=== PATIENT | female | born 1955 | race Caucasian/White ===

== ENCOUNTER 2021-06-22 08:25 | Emergency (ER) | payer OTHER ==
[~2021-06-22] VITALS: Ht 175.3 cm; Wt 104.3 kg
[2021-06-22 10:28] LABS: Basophils # (auto) 0.1 10 ^3/uL (0-0.2); Basophils % (auto) 0.6 % (0.0-2.0); Eosinophils # (auto) 0.3 10 ^3/uL (0-0.8); Eosinophils % (auto) 2.4 % (0.0-7.0); Hematocrit 35.5 % (36.0-46.0); Hemoglobin 11.7 g/dL (12.2-16.2); Lymphocytes # (auto) 1.1 10 ^3/uL (0.4-5.4); Lymphocytes % (auto) 9.8 % (10.0-50.0); Mean Corpuscular Hemoglobin 31.9 pg (28.0-32.0); Mean Corpuscular Hgb Conc. 32.8 g/dL (32.0-36.0); Mean Corpuscular Volume 97.2 fL (80.0-100.0); Monocytes % (auto) 8.9 % (0.0-12.0); Neutrophils # (auto) 8.8 10 ^3/uL (1.6-8.6); Neutrophils % (auto) 78.3 % (37.0-80.0); Nucleated Red Blood Cells % 0.2 %; Red Blood Cells 3.65 10^6/uL (4.0-5.20); Red Cell Distribution Width 13.8 % (11.8-14.3); White Blood Cell 11.3 10^3/uL (4.4-10.8)
[2021-06-22 10:45] LABS: Albumin 2.8 g/dL (3.4-5.0); Calcium 8.2 mg/dL (8.5-10.1); Potassium 4.4 mmol/L (3.5-5.1)
[2021-06-22 10:50] LABS: BUN/Creatinine Ratio 21.3; Bilirubin, Total 0.6 mg/dL (0.2-1.0); Total Protein 6.1 g/dL (6.4-8.2)
[2021-06-22] MEDS ORDERED: SODIUM CHLORIDE 0.9% 1,000 ML IV ONE (11:00)
[2021-06-22] MEDS ORDERED: ASPirin 81 mg TAB PO ONE (12:15)
[2021-06-22] MEDS ORDERED: HYDROcodone-ACET 10/325MG TAB PO ONE ×2 (13:30→20:45)
[2021-06-22 13:43] LABS: INR > 8.0 (0.9-1.15)
[2021-06-22 13:44] LABS: Partial Thromboplastin Time 82.7 sec (23.6-33.0)
[2021-06-22] MEDS ORDERED: PHYTONADIONE (VIT K)10 MG/ML 1ML VIAL SUBCUT ONE (14:15)
[2021-06-22 22:16] VITALS: BP 137/62
== END 2021-06-22 23:03 | disposition home or self-care (01) ==
LOC: EDBD 08:25 → ER 08:25
DX: S32.009A Unspecified fracture of unspecified lumbar vertebra, initial encounter for closed fracture (principal); R74.8 Abnormal levels of other serum enzymes; R79.1 Abnormal coagulation profile; R51.9 Headache, unspecified; Z88.0 Allergy status to penicillin; E11.9 Type 2 diabetes mellitus without complications; Z90.89 Acquired absence of other organs; Z20.822 Contact with and (suspected) exposure to COVID-19; W19.XXXA Unspecified fall, initial encounter; Y93.89 Activity, other specified; Y92.89 Other specified places as the place of occurrence of the external cause; Y99.8 Other external cause status
CPT/HCPCS: 36415; 70450; 72131; 72192; 80053; 83880; 84484; 85025; 85610; 85730; 87426; 93005; 96360; 96361; 99285; J3430; J7030